=== PATIENT | female | born 1945 | race Caucasian/White ===

== ENCOUNTER 2024-04-08 14:38 | Inpatient (IN) | payer OTHER ==
[~2024-04-08] VITALS: Ht 165.1 cm; Wt 102.1 kg
[2024-04-08] MEDS ORDERED: FUROSEMIDE 40 MG/4 ML VIAL ONE (15:16)
[2024-04-08] MEDS ORDERED: METOPROLOL TARTRATE INJ 5 MG/5 ML AMPUL ONE ×3 (15:17→15:51)
[2024-04-08] MEDS: FUROSEMIDE 40 MG/4 ML VIAL IV ONE (15:28)
[2024-04-08] MEDS: METOPROLOL TARTRATE INJ 5 MG/5 ML AMPUL IV ONE ×3 (15:29→15:56)
[2024-04-08 15:44] LABS: BASOPHILS # (AUTO) 0.1 K/uL (0.0-0.2); BASOPHILS % (AUTO) 0.7 % (0.0-2.0); EOSINOPHILS % (AUTO) 0.3 % (0.0-6.0); HEMATOCRIT 47 % (33-45); HEMOGLOBIN 15.8 g/dL (11.5-14.8); LYMPHOCYTES # (AUTO) 1.6 K/uL (0.8-4.8); LYMPHOCYTES % (AUTO) 17.6 % (20.0-44.0); MEAN CORPUSCULAR HEMOGLOBIN 31 PG (26.0-33.0); MEAN CORPUSCULAR HGB CONC 34 g/dl (31.0-36.0); MEAN CORPUSCULAR VOLUME 91 fL (82-100); MONOCYTES # (AUTO) 0.8 K/uL (0.1-1.30); MONOCYTES % (AUTO) 9.1 % (2.0-12.0); NEUTROPHILS # (AUTO) 6.6 K/uL (1.8-8.9); NEUTROPHILS % (AUTO) 72.3 % (43.0-81.0); PLATELET COUNT (AUTO) 253 K/uL (150-450); RED CELL DISTRIBUTION WIDTH 15.2 % (11.5-15.0); WHITE BLOOD COUNT (AUTO) 9.1 K/uL (4.3-11.0)
[2024-04-08] MEDS ORDERED: METOPROLOL SUCCINATE 25 MG TAB.SR.24H ONE (15:58)
[2024-04-08 15:59] LABS: INR 1.3 (0.91-1.10); PARTIAL THROMBOPLASTIN TIME 25.9 SEC (24.3-34.3); PROTHROMBIN TIME 13.5 SECS (9.2-11.1)
[2024-04-08] MEDS: METOPROLOL SUCCINATE 50 MG TAB.SR.24H PO SCH (16:00)
[2024-04-08 16:09] LABS: CALCIUM, SERUM 9.3 mg/dL (8.5-10.1); CARBON DIOXIDE 24 mmol/L (21-32); CHLORIDE 104 mmol/L (98-107); CREATININE 1.3 mg/dL (0.6-1.3); GLUCOSE 116 mg/dL (74-106); POTASSIUM 3.8 mmol/L (3.5-5.1); SODIUM SERUM 139 mmol/L (136-145); UREA NITROGEN, BLOOD 17 mg/dL (7-18)
[2024-04-08 16:29] LABS: ALANINE AMINOTRANSFERASE 39 U/L (12-78); ALBUMIN 3.7 g/dL (3.4-5.0); ALKALINE PHOSPHATASE 94 U/L (46-116); ASPARTATE AMINOTRANSFERASE 35 U/L (15-37); BILIRUBIN,DIRECT 0.6 mg/dL (0.0-0.2); BILIRUBIN,TOTAL 1.7 mg/dL (0.2-1.0); NT-PRO BNP 3437 pg/mL (0-125); TOTAL PROTEIN, SERUM 6.4 g/dL (6.4-8.2)
[2024-04-08] MEDS ORDERED: IOHEXOL-350 100 ML VIAL IV ONE (16:35)
[2024-04-08] MEDS ORDERED: IV NS 0.9% 250 ML IV ONE (16:35)
[2024-04-08] MEDS ORDERED: AMIODARONE 150 MG/3 ML VIAL IV ONE ×2 (18:00)
[2024-04-08] MEDS ORDERED: ENOXAPARIN SODIUM 60 MG/0.6 ML DISP.SYRIN SQ ONE (18:10)
[2024-04-08] MEDS: ENOXAPARIN SODIUM 100 MG/ML DISP.SYRIN SQ ONE (18:19)
[2024-04-08] MEDS: AMIODARONE 150 MG in IV D5W 100 ML IV ONE (18:41)
[2024-04-08] MEDS: AMIODARONE 450 MG in IV D5W 241 ML IV PRN (19:19)
[2024-04-08 20:27] LABS: THYROID STIMULATING HORMONE 4.11 uIU/mL (0.358-3.74)
[2024-04-08] MEDS ORDERED: MAGNESIUM HYDROXIDE 30 ML UDC PO PRN (21:00)
[2024-04-08] MEDS ORDERED: ONDANSETRON HCL/PF 4 MG/2 ML VIAL IVP PRN (21:00)
[2024-04-08] MEDS ORDERED: ACETAMINOPHEN 325 MG TABLET PO PRN (21:00)
[2024-04-08] MEDS ORDERED: MAG HYDROX/AL HYDROX/SIMETH 30 ML UDC PO PRN (21:00)
[2024-04-09] VITALS: BP 122/91; TEMP 97.8; O2SAT 100
[2024-04-09] MEDS ORDERED: AMIODARONE 150 MG/3 ML VIAL IV ONE (01:19)
[2024-04-09 04:00] VITALS: BP_SYST 115; BP_SYST 122; BP_DIAS 78; BP_DIAS 91; TEMP 97.8; TEMP 99.1; O2SAT 100; O2SAT 99
[2024-04-09 06:24] LABS: BASOPHILS % (AUTO) 0.4 % (0.0-2.0); EOSINOPHILS % (AUTO) 0.1 % (0.0-6.0); HEMATOCRIT 49 % (33-45); LYMPHOCYTES # (AUTO) 1.7 K/uL (0.8-4.8); LYMPHOCYTES % (AUTO) 16.1 % (20.0-44.0); MEAN CORPUSCULAR HEMOGLOBIN 31 PG (26.0-33.0); MEAN CORPUSCULAR HGB CONC 33 g/dl (31.0-36.0); MEAN CORPUSCULAR VOLUME 93 fL (82-100); MONOCYTES # (AUTO) 1.5 K/uL (0.1-1.30); MONOCYTES % (AUTO) 13.8 % (2.0-12.0); NEUTROPHILS # (AUTO) 7.4 K/uL (1.8-8.9); NEUTROPHILS % (AUTO) 69.6 % (43.0-81.0); PLATELET COUNT (AUTO) 205 K/uL (150-450); RED BLOOD CELL COUNT(AUTO) 5.21 MIL/uL (4.0-5.2); RED CELL DISTRIBUTION WIDTH 15.4 % (11.5-15.0); WHITE BLOOD COUNT (AUTO) 10.7 K/uL (4.3-11.0)
[2024-04-09 06:39] LABS: CALCIUM, SERUM 9.4 mg/dL (8.5-10.1); CREATININE 1.5 mg/dL (0.6-1.3); MAGNESIUM 2.2 mg/dL (1.8-2.4); PHOSPHORUS 5.3 mg/dL (2.5-4.9); POTASSIUM 4.2 mmol/L (3.5-5.1)
[2024-04-09 08:00] VITALS: BP 125/85; TEMP 97.5; O2SAT 99
[2024-04-09] MEDS: PANTOPRAZOLE 40 MG VIAL IV SCH (09:09)
[2024-04-09] MEDS: FUROSEMIDE 40 MG/4 ML VIAL IV SCH (11:16)
[2024-04-09] MEDS: METOPROLOL SUCCINATE 50 MG TAB.SR.24H PO SCH (11:17)
[2024-04-09] MEDS: POTASSIUM CHLORIDE 20 MEQ TAB.PRT.SR PO SCH (11:18)
[2024-04-09] MEDS: APIXABAN 5 MG TABLET PO SCH (11:20)
[2024-04-09 12:00] VITALS: BP 127/96; TEMP 98.6; O2SAT 99
[2024-04-09] MEDS: DIGOXIN INJ 0.5 MG/2 ML AMPUL IV SCH (12:28)
[2024-04-09 16:00] VITALS: BP 129/92; TEMP 97.9; O2SAT 96
[2024-04-09 17:49] VITALS: BP 129/92
[2024-04-09] MEDS ORDERED: ENOXAPARIN SODIUM 40 MG/0.4 ML DISP.SYRIN SQ SCH (18:00)
== END 2024-04-09 21:03 | disposition short-term general hospital (02) | DRG 291 ==
LOC: ER 14:40 → TELE1 21:25 → TELE-TD 21:38 → TELE1 04-09 11:12
DX: I13.0 Hypertensive heart and chronic kidney disease with heart failure and stage 1 through stage 4 chronic kidney disease, or unspecified chronic kidney disease (principal); I50.33 Acute on chronic diastolic (congestive) heart failure; J96.01 Acute respiratory failure with hypoxia; N17.9 Acute kidney failure, unspecified; I48.91 Unspecified atrial fibrillation; E03.8 Other specified hypothyroidism; E66.9 Obesity, unspecified; Z68.38 Body mass index [BMI] 38.0-38.9, adult; N18.9 Chronic kidney disease, unspecified
CPT/HCPCS: 36415; 80048-TC; 80061-TC; 80076-TC; 83735-TC; 83880; 84100-TC; 84439-TC; 84443-TC; 84484-TC; 85025-TC; 85378-TC; 85730-TC; 93307-TC; 93970-TC; 97112-TC; 97116-TC; 97530-TC; A4223; G0378; J0282; J1160; J1650; J1940; J2470; J3490; J7050; J7060; Q9967